=== PATIENT | female | born 1960 | race Caucasian/White ===

== ENCOUNTER 2022-10-15 21:49 | Emergency (ER) | payer BC ==
[~2022-10-15] VITALS: Ht 172.7 cm; Wt 78.0 kg
[2022-10-15 22:22] LABS: BASOPHILS # (AUTO) 0.1 10^3/uL (0.0-0.1); BASOPHILS % (AUTO) 1 % (0-10); EOSINOPHILS # (AUTO) 0.2 10^3/uL (0.0-0.3); EOSINOPHILS % (AUTO) 2 % (0-10); HEMATOCRIT 39 % (35-52); HEMOGLOBIN 12.7 g/dL (11.5-16.0); LYMPHOCYTES # (AUTO) 2.8 10^3/uL (1.0-4.0); LYMPHOCYTES % (AUTO) 39 % (12-44); MEAN CORPUSCULAR HEMOGLOBIN 29 pg (25-34); MEAN CORPUSCULAR HGB CONC 33 g/dL (32-36); MEAN CORPUSCULAR VOLUME 89 fL (80-99); MEAN PLATELET VOLUME 10.2 fL (9.0-12.2); MONOCYTES # (AUTO) 0.7 10^3/uL (0.0-1.0); MONOCYTES % (AUTO) 10 % (0-12); NEUTROPHILS # (AUTO) 3.6 10^3/uL (1.8-7.8); NEUTROPHILS % (AUTO) 49 % (42-75); PLATELET COUNT 196 10^3/uL (130-400); WHITE BLOOD COUNT 7.4 10^3/uL (4.3-11.0)
--- NOTE | 2022-10-15 22:24 | ED Neurological Problem ---
General Chief Complaint: Neuro-Stroke Like Symptoms Stated Complaint: LEFT ARM NUMB|WEAKNESS|POSS STROKE Nursing Triage Note: Pt presents with c/o numbness in L arm and not feeling right around 1900 tonight. She reports hx of stroke. Normally she has residual weakness in R side, however tonight her L side is weak. Source: patient Exam Limitations: no limitations History of Present Illness Date Seen by Provider: Oct 15, 2022 Time Seen by Provider: 21:53 Initial Comments This 62-year-old woman presents to the emergency room with complaints of numbness sensation of the left arm and leg with last known well time of approximately 1500. She checked her blood pressure at home and found it to be 105/62. She called a friend for advice who advised her to come to the emergency room. Patient checked her blood pressure again and found it to be 111/72 with heart rate of 76. Numbness did not resolve so she eventually decided to come to the emergency room. She reports some minor headache and questionable slightly slowed speech which is not observed by this provider. She states her jaw feels tight but she had 2 teeth pulled last week. She denies any vision changes. She has chronic right leg weakness from a prior stroke and that is unchanged. She felt like it was perhaps a little more difficult to walk tonight than usual but she denied new weakness in her legs. Patient has prior history of stroke in 2011. She had right-sided weakness, sluggish speech, difficulty reading associated with that stroke. She has some residual right-sided weakness but other symptoms have resolved. Patient does not take any antiplatelet therapy at this time. She does not have a primary care provider. She has not followed up for monitoring of her cardiovascular health. Fingerstick blood sugar on arrival was 108. Patient was immediately seen and evaluated. Stroke activation was paged. Allergies and Home Medications Allergies Coded Allergies: No Known Drug Allergies (Unverified , 10/16/22) Patient Home Medication List Home Medication List Reviewed: Yes Review of Systems Review of Systems Constitutional: no symptoms reported Eyes: No Symptoms Reported Ears, Nose, Mouth, Throat: no symptoms reported Respiratory: no symptoms reported Cardiovascular: no symptoms reported Gastrointestinal: no symptoms reported Genitourinary: no symptoms reported Musculoskeletal: no symptoms reported Skin: no symptoms reported Psychiatric/Neurological: See HPI Endocrine: No Symptoms Reported Hematologic/Lymphatic: No Symptoms Reported Past [id number]-Refmon-Rltmcq Hx Patient Social History Tobacco Use?: No Use of E-Cig and/or Vaping dev: No Substance use?: No Alcohol Use?: No Past Medical History Surgeries: Yes Hysterectomy Respiratory: No Cardiac: No Neurological: Yes Stroke : No Reproductive Disorders: No Genitourinary: No Gastrointestinal: No Musculoskeletal: No Endocrine: No HEENT: No Cancer: No Psychosocial: No Integumentary: No Physical Exam Vital Signs Vital Signs - First Documented 10/15/22 10/16/22 21:54 01:41 Temp 36.7 Pulse 72 Resp 16 B/P (MAP) 152/81 (104) Pulse Ox 95 O2 Delivery Room Air Capillary Refill : Height, Weight, BMI Height: '" Weight: lbs. oz. kg; 26.00 BMI Method: General Appearance: WD/WN, no apparent distress HEENT: PERRL/EOMI, normal ENT inspection, TMs normal, pharynx normal Neck: normal inspection; No carotid bruit Respiratory: lungs clear, normal breath sounds, no respiratory distress Cardiovascular: regular rate, rhythm, no edema, no murmur Gastrointestinal: normal bowel sounds, non tender, soft Extremities: normal inspection, no pedal edema Neurologic/Psychiatric: no motor/sensory deficits, alert, normal mood/affect Crainal Nerves: normal hearing, normal speech, PERRL Coordination/Gait: normal finger to nose (Normal [id number]-[id number]) Motor/Sensory: sensory deficit (Decreased sensation of the left upper extremity between the shoulder and elbow), weak motor strength RLE (Slight weakness of the right lower extremity stated as chronic and unchanged) Skin: normal color, warm/dry Stroke Onset of Symptoms Date of Onset of Symptoms: Oct 15, 2022 Time of Symptom Onset: 15:00 NIH Stroke Scale Assessment Select: Post CT Level of Consciousness: 0=Alert (0), Level of Consciousness-Questions: 0=Answers both month/age (0), LOC Commands: 0=Performs both tasks (0), Visual Lloyd: 0=No visual loss (0), Facial Movement (Facial Paresis): 0=Normal symmetrical mnt (0), Motor Function-Arms Right: 0=No drift (0), Motor Function-Arms Left: 0=No drift (0), Motor Function-Legs Right: 0=No drift (0), Motor Function-Legs Left: 0=No drift (0), Limb Ataxia: 0=Absent (0), Sensory: 0=Normal:no loss (0), Best Language: 0=No aphasia (0), Dysarthria: 0=Normal (0), Extinction & Inattention: 0=No abnormality (0), Total: 0 IV - TPa Received IV - TPa Procedure Performed?: No Progress/Results/Core Measures Results/Orders Lab Results Laboratory Tests Test 10/15/22 22:00 10/15/22 22:14 10/15/22 22:47 Range/Units Glucometer 108 70-110 MG/DL White Blood Count 7.4 4.3-11.0 10^3/uL Red Blood Count 4.39 3.80-5.11 10^6/uL Hemoglobin 12.7 11.5-16.0 g/dL Hematocrit 39 35-52 % Mean Corpuscular Volume 89 80-99 fL Mean Corpuscular Hemoglobin 29 25-34 pg Mean Corpuscular Hemoglobin Concent 33 32-36 g/dL Red Cell Distribution Width 13.4 10.0-14.5 % Platelet Count 196 130-400 10^3/uL Mean Platelet Volume 10.2 9.0-12.2 fL Immature Granulocyte % (Auto) 0 % Neutrophils (%) (Auto) 49 42-75 % Lymphocytes (%) (Auto) 39 12-44 % Monocytes (%) (Auto) 10 0-12 % Eosinophils (%) (Auto) 2 0-10 % Basophils (%) (Auto) 1 0-10 % Neutrophils # (Auto) 3.6 1.8-7.8 10^3/uL Lymphocytes # (Auto) 2.8 1.0-4.0 10^3/uL Monocytes # (Auto) 0.7 0.0-1.0 10^3/uL Eosinophils # (Auto) 0.2 0.0-0.3 10^3/uL Basophils # (Auto) 0.1 0.0-0.1 10^3/uL Immature Granulocyte # (Auto) 0.0 0.0-0.1 10^3/uL Prothrombin Time 12.2 12.2-14.7 SEC INR Comment 0.9 0.8-1.4 Activated Partial Thromboplast Time 27 24-35 SEC D-Dimer < 0.27 0.00-0.49 UG/ML Sodium Level 144 135-145 MMOL/L Potassium Level 3.4 L 3.6-5.0 MMOL/L Chloride Level 111 H 98-107 MMOL/L Carbon Dioxide Level 23 21-32 MMOL/L Anion Gap 10 5-14 MMOL/L Blood Urea Nitrogen 8 7-18 MG/DL Creatinine 0.73 0.60-1.30 MG/DL Estimat Glomerular Filtration Rate 93 BUN/Creatinine Ratio 11 Glucose Level 105 70-105 MG/DL Calcium Level 9.0 8.5-10.1 MG/DL Corrected Calcium 9.0 8.5-10.1 MG/DL Total Bilirubin 0.3 0.1-1.0 MG/DL Aspartate Amino Transf (AST/SGOT) 13 5-34 U/L Alanine Aminotransferase (ALT/SGPT) 12 0-55 U/L Alkaline Phosphatase 84 40-136 U/L Troponin I < 0.028 <0.028 NG/ML Total Protein 6.8 6.4-8.2 GM/DL Albumin 4.0 3.2-4.5 GM/DL Urine Color YELLOW Urine Clarity CLEAR Urine pH 6.5 5-9 Urine Specific [place] <=1.005 1.016-1.022 Urine Protein NEGATIVE NEGATIVE Urine Glucose (UA) NEGATIVE NEGATIVE Urine Ketones NEGATIVE NEGATIVE Urine Nitrite NEGATIVE NEGATIVE Urine Bilirubin NEGATIVE NEGATIVE Urine Urobilinogen 0.2 < = 1.0 MG/DL Urine Leukocyte Esterase NEGATIVE NEGATIVE Urine RBC (Auto) NEGATIVE NEGATIVE Urine RBC NONE /HPF Urine WBC NONE /HPF Urine Squamous Epithelial Cells RARE /HPF Urine Crystals NONE /LPF Urine Bacteria TRACE /HPF Urine Casts NONE /LPF Urine Mucus NEGATIVE /LPF Urine Culture Indicated NO My Orders Orders - SENTHIL ATWOOD MD Cbc With Automated Diff (10/15/22 22:02) Protime With Inr (10/15/22 22:02) Partial Thromboplastin Time (10/15/22 22:02) Comprehensive Metabolic Panel (10/15/22 22:02) Fibrin Degradation Products (10/15/22 22:02) Troponin I [place] (10/15/22 22:02) Ua Culture If Indicated (10/15/22 22:02) Chest 1 View, Ap/Pa Only (10/15/22 22:02) Ekg Tracing (10/15/22 22:02) Accucheck Stat ONCE (10/15/22 22:02) Ed Iv/Invasive Line Start (10/15/22 22:02) Ed Iv/Invasive Line Start (10/15/22 22:02) Vital Signs Stroke Patient Q15M (10/15/22 22:02) Ct Head Wo-R/O Stroke (10/15/22 22:02) O2 (10/15/22 22:02) Monitor-Rhythm Ecg Trace Only (10/15/22 22:02) Dysphagia Screening Tool Q10MX1 (10/15/22 22:02) End Tidal Co2 (10/15/22 22:39) Ct Angio Head/Neck (10/15/22 22:59) Aspirin Tablet (Aspirin Tablet) (10/16/22 01:30) Medications Given in ED Current Medications Medications Dose Ordered Sig/Shaggy Route Start Time Stop Time Status Last Admin Dose Admin Aspirin 325 mg ONCE ONCE PO 10/16/22 01:30 10/16/22 01:31 DC 10/16/22 01:36 325 MG Vital Signs/I&O 10/15/22 10/16/22 21:54 01:41 Temp 36.7 36.7 Pulse 72 78 Resp 16 16 B/P (MAP) 152/81 (104) 107/54 Pulse Ox 95 O2 Delivery Room Air Blood Pressure Mean: 104 FSBG Bedside Testing Finger Stick Blood Glucose: 108 Progress Progress Note : Progress Note Patient was immediately interviewed and examined. Stroke work-up was pursued. Stroke activation was paged. NIH stroke score as performed by nursing staff was 0. Patient was not a thrombolytic candidate due to greater than 4.5 hours from last known well time and minimal deficits with a stroke score of 0. I accom panied patient to CT scan and immediately reviewed the noncontrast CT head. No acute hemorrhage, masses, or infarcts were appreciated by my interpretation. [facility] report was reviewed and discussed with the radiologist. His interpretation of the CT was negative. This was followed by CT angiogram of the head and neck after review of labs. CT angiogram likewise was unremarkable per radiologist's interpretation. I reviewed the report and discussed with the radiologist. Labs were reviewed in their entirety including CBC, CMP, troponin, D-dimer, coagulation studies, magnesium, and urinalysis. There were no significant abnormalities appreciated by my interpretation. ECG was normal by my interpretation. From a clinical perspective, it is doubtful that patient had a stroke. Her D-dimer was low and within normal range. Blood pressure was in the low normal range as well. I would expect both D-dimer and blood pressure to be elevated in an acute stroke scenario. Symptoms may be radicular in nature. No cervical spine abnormalities were reported on the CT angiogram of the head and neck. Patient passed the dysphagia screen and was given aspirin. I discussed disposition with the patient and offered admission for further evaluation including observation in the hospital, MRI of the brain, and possible echocardiogram. Although I believed stroke was an unlikely etiology for her symptoms, I did explain to the patient it could not be completely ruled out with her work-up in the emergency room. Patient declined the offer for admission and prefers to pursue outpatient follow-up. Strict return precautions were discussed with the patient and she expressed understanding. See discharge instructions for further discussion. Initial ECG Impression Date: Oct 15, 2022 Initial ECG Impression Time: 22:22 Initial ECG Rate: 70 Initial ECG Rhythm: Normal Sinus Initial ECG Intervals: Normal Initial ECG Impression: Normal Comment Normal sinus rhythm with no ST elevation or depression. No abnormal intervals or axis deviation. CT Read Date: Oct 15, 2022 CT Read Time: 22:10 CT Results/Progress Notes CT was viewed by me in the CT department. No intracranial hemorrhage, masses, or ischemic changes were identified by my interpretation. Radiologist report is pending. Departure Impression Primary Impression: Left sided numbness Additional Impression: History of CVA (cerebrovascular accident) Disposition: 01 HOME, SELF-CARE Condition: Improved Departure-Patient Inst. Decision time for Depature: 01:34 Referrals: NO,LOCAL PHYSICIAN (PCP/Family) Primary Care Physician Patient Instructions: Radiculopathy, Stroke Add. Discharge Instructions: Follow-up with a primary care provider as soon as possible. Please call later this morning to make arrangements for a follow-up. Take aspirin 325 mg daily until otherwise directed. Although it appears unlikely that you have had a stroke based on your work-up in the emergency room tonight, stroke cannot be completely ruled out at this time. It is therefore very important that you follow-up in a timely fashion. It is also critical that you return to the emergency room if you have any worsening neurologic conditions which may include worsening numbness, true weakness of any body part, difficulty with speech, difficulty understanding speech, sudden vision changes, confusion, loss of balance or any other sudden neurologic change. If any of these symptoms occur, return to the emergency room immediately. Call 911 if necessary to expedite evaluation in the ER. All discharge instructions reviewed with patient and/or family. Voiced understanding. SENTHIL ATWOOD MD Oct 15, 2022 22:24
[2022-10-15 22:35] LABS: CHLORIDE 111 MMOL/L (98-107); POTASSIUM 3.4 MMOL/L (3.6-5.0); SODIUM 144 MMOL/L (135-145)
[2022-10-15 22:37] LABS: GLUCOSE 105 MG/DL (70-105)
[2022-10-15 22:38] LABS: TOTAL PROTEIN 6.8 GM/DL (6.4-8.2)
[2022-10-15 22:39] LABS: BILIRUBIN,TOTAL 0.3 MG/DL (0.1-1.0); CARBON DIOXIDE 23 MMOL/L (21-32)
[2022-10-15 22:41] LABS: ALKALINE PHOSPHATASE 84 U/L (40-136); CREATININE SERUM 0.73 MG/DL (0.60-1.30); GFR ESTIMATED 93
[2022-10-15 22:42] LABS: BUN/CREATININE RATIO 11; INR 0.9 (0.8-1.4); PROTHROMBIN TIME PATIENT 12.2 SEC (12.2-14.7)
[2022-10-15 22:43] LABS: PARTIAL THROMBOPLASTIN TIME 27 SEC (24-35)
[2022-10-15 22:44] LABS: ALANINE AMINOTRANSFERASE 12 U/L (0-55)
[2022-10-15 22:49] LABS: FIBRIN DEGRADATION PRODUCTS < 0.27 UG/ML (0.00-0.49)
[2022-10-15 22:57] LABS: BILIRUBIN,URINE NEGATIVE (NEGATIVE); CLARITY,URINE CLEAR; COLOR,URINE YELLOW; GLUCOSE, URINE (UA) NEGATIVE (NEGATIVE); KETONES,URINE NEGATIVE (NEGATIVE); LEUKOCYTE ESTERASE ,URINE NEGATIVE (NEGATIVE); NITRITE,URINE NEGATIVE (NEGATIVE); PH,URINE 6.5 (5-9); PROTEIN,URINE NEGATIVE (NEGATIVE)
[2022-10-15 23:08] LABS: BACTERIA,URINE TRACE /HPF; SQUAMOUS EPITHELIAL CELL,UR RARE /HPF
[2022-10-16] MEDS ORDERED: ASPIRIN 325 MG (5 GR) TABLET PO ONE (01:30)
[2022-10-16 01:41] VITALS: BP 107/54
--- NOTE | 2022-10-16 06:48 | Diagnostic Imaging Report ---
CLINICAL INDICATIONS: Patient with left arm numbness and weakness. Patient's history of previous strokes. EXAM: Axial CT scan of the brain performed without IV contrast. High-resolution axial CT brain images with sagittal and coronal reformations were also created. Auto Exposure Controls were utilized during the CT exam to meet ALARA standards for radiation dose reduction. COMPARISON: None. FINDINGS: There is no evidence of acute cerebral infarct, intracranial hemorrhage, or gross mass effect. The brain parenchymal volume appears appropriate for patient's age. There is normal zuñiga-white matter distinction. There is no significant midline shift or herniation. There is no evidence of hydrocephalus. The basal cisterns are unremarkable. The skull, extracranial soft tissue, and orbits are unremarkable. There is moderate-sized mucus retention cysts involving both maxillary sinuses. Temporal bones show no significant abnormality. IMPRESSION: 1: There is no CT evidence of acute intracranial process. There is no dense vessel sign. I agree with [facility] report. Dictated by: Dictated on workstation # [id number]
--- NOTE | 2022-10-16 07:24 | Diagnostic Imaging Report ---
PROCEDURE: CT angiography of the head and CT angiography of the neck with and without contrast. TECHNIQUE: Contiguous noncontrast images were obtained from the skull base through the vertex. After intravenous contrast administration, helical CT angiography of the neck was performed. Source data was reformatted into 3D MIP projections. Delayed post contrast acquisition was also obtained. Auto Exposure Controls were utilized during the CT exam to meet ALARA standards for radiation dose reduction. INDICATION: Left upper extremity weakness CT head with and without contrast: EXAMINATION: Multiple contiguous axial CT images of the head were obtained prior to and after intravenous administration of contrast. FINDINGS: Ventricles and sulci are within normal limits. There is no intracranial hemorrhage or abnormal mass effect. No abnormal focus of contrast enhancement is identified. IMPRESSION: Unremarkable CT of the head without and with intravenous contrast. CT HEAD: Anterior, middle and posterior cerebral arteries are unremarkable. There is no evidence of filling defect. No stenosis or occlusion is identified. There is no evidence of aneurysm or vascular malformation. IMPRESSION: No CTA evidence of great vessel abnormality in head. CT NECK: There is a normal three-vessel branching pattern arising from the aortic arch. Common carotid arteries are unremarkable. Internal carotid arteries are also widely patent without evidence of filling defect, intimal abnormality or stenosis. There is no occlusion. There is right vertebral arterial dominance without vertebral lesion seen in the neck. There are bilateral maxillary sinus mucous retention cysts or polyps. Subcentimeter solid nodules noted in the upper pole of the right lobe of the thyroid gland. IMPRESSION: No CTA evidence of great vessel abnormality in the neck. There is an approximately 0.8 cm solid nodule in upper pole of the right lobe of thyroid gland which could be further evaluated on follow-up ultrasound as indicated. Dictated by: Dictated on workstation # [id number]
--- NOTE | 2022-10-16 08:22 | Diagnostic Imaging Report ---
Clinical indication: Patient with weakness and left arm numbness. Patient has history of previous stroke. EXAM: Portable chest x-ray upright view. COMPARISON: None. FINDINGS: Lungs/pleura: Lungs are clear. There is no pneumothorax. There is no pleural effusion. Mediastinum: Unremarkable. Pulmonary vasculature: Unremarkable. Heart: Unremarkable. Bones/extrathoracic soft tissue: There is right curvature of the lumbar spine partially visualized.. IMPRESSION: There is no radiographic evidence of acute cardiopulmonary process. Dictated by: Dictated on workstation # [id number]
== END 2022-10-16 01:42 | disposition home or self-care (01) ==
LOC: ER 21:52
DX: R20.0 Anesthesia of skin (principal); Z86.73 Personal history of transient ischemic attack (TIA), and cerebral infarction without residual deficits
CPT/HCPCS: 36415; 70450; 70496; 70498; 71045; 80053; 81000; 82947; 84484; 85025; 85379; 85610; 85730; 93005; 93041

== ENCOUNTER → 2022-10-25 | Outpatient (CLI) | payer BC | LOC: RAD 09:00 | PROVIDERS: ATTEND Family Medicine | DX: M62.81 Muscle weakness (generalized) (principal); Z53.9 Procedure and treatment not carried out, unspecified reason ==